=== PATIENT | female | born 1960 ===

== ENCOUNTER 2021-04-16 18:37 | Inpatient (IN) | payer OTHER, SELFPAY ==
[2021-04-16 18:45] VITALS: BP 159/76; PULSE 76; RESP 15; TEMP 36.2; O2SAT 98
--- NOTE | 2021-04-16 20:49 | PC.ADMIT ---
Patient is admitted from [facility] at 18:45pm on 04/16/21. Patient is assessed by [facility] and diagnosed with F33.1 Major Depressive Disorder, Recurrent Episode, Moderate. Patient is A&OX4 though states, Monday when asked what day of the week it was. Patient presents with flat, depressed affect and significant thought blocking/communication delay with fidgeting gross motor activity. Patient rates current anxiety 5/10. When asked if she is feeling depressed, she replies no, no, no. Patient denies auditory/visual hallucinations and suicidal ideation, though appears pre-occupied. Patient reports she is a current 1 pack/day smoker for the last 40 years. When asked how she is feeling at this time, patient replies I just want to get it right, so I can go home. I need to go back to work. 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 Per [facility] documentation, patient presented to [facility]'s inpatient medical floor secondary to alcohol withdrawal, dehydration, and not caring for herself. Per [facility] records, Pt. endorsed SI with non-disclosed plan within the context of depressive symptoms. Pt. reports not sleeping, eating or drinking in recent weeks. Initially, when asked if she uses/used alcohol, patient responded firmly No. Patient then reported she had a couple of drinks before coming into the hospital, but it was just a blip. I am still sober. [facility] Medical Records indicate possible Wernicke's Encephalopathy. Patient is known to [facility] and [facility] through a previous inpatient admission in 2018. Patient is oriented to unit and placed on inital 5 minute safety checks.
--- NOTE | 2021-04-16 21:57 | P.HPPS_ITS ---
HPI Date of Service: 04/16/21 Chief Complaint: SI, Depression Sources of Information: patient interviewed, chart reviewed and crisis/core team assessment reviewed HPI Subjective Notes: Hernandez Warning and Conditional Voluntary Narrative: Pt is a 61 y.o. Female who carries a dx of Alcohol Use Disorder and HINA. She was brought to [facility] 04/16/21 by her son due to altered mental status secondary to alcohol withdrawal, dehydration, and not caring for herself. Pt was seen by [facility] crisis due to endorsing SI and recurrent depressive symptoms. Pt recently relapsed on alcohol after being sober for 7 years. Per [facility] records, there is a question of Wernicke?s Encephalopathy, pt reports she had an MRI and it was ?normal,? will need to request records. Pt?s CIWA was 11 in AM and PRN ativan 1 mg was given with positive effect but further CIWA scores required no intervention. Brought in by son due to altered mental status.? I evaluated the pt this evening and upon interview she reports she is in the hospital ?to make sure im safe going back home.? She denies SI. Pt also denies depression, saying ?I get a little more anxious than depressed? and that ?im not depressed, I have a good life.? She is unable to identify precipitating fx for her relapse on alcohol, ?usually i really dont have the craving for that, i dont even know why i did it.? Says her relapse was a ?blip? and continues to repeat this throughout the interview. During her relapse, pt admits she was not eating, sleeping, or caring for herself. Says since then, her sleep is ?most of the time okay.? Reports her daytime energy is ?not as good as it used to be.? Appetite is now restored. Pt says that during this most recent binge, she had a ?problem with the brain a little bit, [the alcohol] soaked in a little bit.? Says ?I know i?m much better now and it?s a huge reminder not to do it again ever because next time it will kill me.? Says she has anxiety about ?little things during the day,? but denies that anxiety impairs her functioning, ?I just work through it.? Denies panic attacks. Says she is ?sometimes just anxious because the brain doesnt always turn off, its always going.? However, denies hyposomnia and says she jessica with anxiety by walking, doing deep breathing. She denies issues with concentration or memory. Denies family hx of dementia, alzheimers. No hx of manic or hypomanic episodes endorsed. Denies aggression. Denies psychotic sx. Denies sx of PTSD.? Past Psychiatric History: Past meds: Pt states ?I think there was one for depression at one time,? but says this was ?a very long time,? doesnt remember the medication, didnt like the way it made her feel. -No current OP treatment, remote hx of therapy -Hx of IPLOC at [facility] in 2018 due to SI with plan to OD on diuretics, depression, and psychotic sx. Medical Evaluation Reviewed: Hospitalist Aishwarya Pending [facility] Medical History (Updated 04/17/21 @ 09:23 by Malathi Echols NP) Hypertension Narrative: -COPD, expressive aphasia (unclear etiology, question of Wernicke?s Encephalopathy). -Per [facility] records on 04/16/21, CBC wnl except RBC L 3.41, Hbg/ Hct L 11.5/35.0. CMP wnl. Utox negative. Mg wnl, vit B12 wnl.? -Pt reports she had a fall ?about a month ago,? and that she ?tripped? in context of alcohol intoxication, did not lose consciousness, no medical follow up. Says she has had some headaches, but otherwise denies residual effects.? Family History: -Per chart, pt?s mother was heavily medicated all of the time and committed suicide by overdosing on pills. Social History: -Pt born in [place], raised by bio parents (now , mom completed suicide by OD on pills). She has five children and six grandchildren. Says she has supports at work, in a relationship, close with her children. -Pt works at [employer] (had worked there 15 years and recently started back work there). 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 Substance History: -Alcohol: onset in her 20s, relapsed in March, was drinking 3-4 mini bottles of wine (187 ml) ?a couple times a day,? has pattern of binge drinking, had been abstinent 7 yrs. Hx of AA, says she has a sponsor. Trauma History: Denies Diagnostics Vital Signs (24Hr): Vital Signs - 24 hr 04/16/21 18:45 Temperature 97.2 F Pulse Rate 76 Respiratory Rate 15 Blood Pressure 159/76 H Pulse Oximetry 98 Meds/Allergies Meds Home Medications Acetaminophen (Acetaminophen 325 Mg Tablet) 650 mg PO Q6H PRN PRN Reason: Headache/Pain Mild Scale (1-3) Last Admin: 04/17/21 07:13 Dose: 650 mg Documented by: Al Hydroxide/Mg Hydroxide (Magnesium Hydrox/Alum Hydrox 30 Ml Oral.Susp) 30 ml PO Q6H PRN PRN Reason: Heartburn/Nausea Clonidine HCl (Clonidine Hcl 0.1 Mg Tablet) 0.1 mg PO DAILY PRN; Protocol PRN Reason: anxiety Fluticasone/Vilanterol (Fluticasone/Vilanterol 100/25 Blst.W.Dev) 1 puff INHALE RDAILY [facility] Last Admin: 04/17/21 08:33 Dose: 1 puff Documented by: Hydroxyzine HCl (Hydroxyzine Hcl 25 Mg Tablet) 25 mg PO Q6H PRN PRN Reason: Anxiety Last Admin: 04/17/21 07:13 Dose: 25 mg Documented by: Lisinopril (Lisinopril 40 Mg Tablet) 40 mg PO DAILY [facility]; Protocol Last Admin: 04/17/21 08:33 Dose: 40 mg Documented by: Magnesium Hydroxide (Milk Of Magnesia 30 Ml Oral.Susp) 30 ml PO DAILY PRN PRN Reason: Constipation Omeprazole (Omeprazole 40 Mg Capsule.Dr) 40 mg PO DAILY@0630 [facility] Last Admin: 04/17/21 06:44 Dose: 40 mg Documented by: Pravastatin Sodium (Pravastatin Sodium 20 Mg Tablet) 20 mg PO DAILY [facility] Last Admin: 04/17/21 08:34 Dose: 20 mg Documented by: Trazodone HCl (Trazodone Hcl 50 Mg Tablet) 50 mg PO BEDTIME PRN PRN Reason: Insomnia Allergies Allergies Allergy/AdvReac Type Severity Reaction Status Date / Time No Known Allergies Allergy Unverified 04/16/21 18:35 Mental Status Exam Mental Status Exam Narrative: A&O. In hospital attire, arms crossed, thin, dyed hair. Poor eye contact, attentive. Pt appears somewhat unbalanced, unsteady on feet but able to ambulate without assist and has not had falls. No abnormal involuntary movements. Pt is suspicious, constricted, difficult to engage, minimizing sx. She appears to have some cognitive impairment with unclear etiology (alcohol?), expressive aphasia. Non-pressured speech, non-spontaneous, notable for prolonged speech latency. Mood is ?anxious,? affect is constricted/ blunted. Denies SI/SIB/HI upon inquiry. Denies A/VH or delusional thought content. Thoughts are perseverative, continues to repeat relapse was a blip. Insight/ Judgment limited. Assessment & Plan Assessment & Plan (1) Alcohol use disorder, severe, dependence: Status: Acute Code(s): F10.20 - Alcohol dependence, uncomplicated (2) HINA (generalized anxiety disorder): Status: Acute Code(s): F41.1 - Generalized anxiety disorder Assessment and Plan: Pt is a 61 y.o. Female who carries a dx of Alcohol Use Disorder and HINA. She was brought to [facility] 04/16/21 by her son due to altered mental status secondary to alcohol withdrawal, dehydration, and not caring for herself. She is currently presenting with sx of prolonged speech latency, expressive aphasia, and unsteady gait. She endorses sx of anxiety but denies other psych sx. Remote hx of IPLOC in 2018. No current OP treatment. Pt is ambivalent about medication. Discussed medication treatment for anxiety and reviewed risks/ benefits of clonidine. Pt says she is ?not opposed to it? but that ?everybody is anxious and they don?t always take medication.? Says she has anxiety ?every once in a while? but denies that it impairs her functioning. Says she is ?trying to get back to myself? and is unsure if medication will help. Will start clonidine 0.1 mg QD PRN for anxiety. Monitor response to medications. Monitor for safety in the milieu. Discharge on stabilization. Patient seen. Chart reviewed. Discussed with team. Obtain collateral contact info?as needed Reason for continued inpatient stay Substantial Risk for: inability to function and med/psych decompensation
[2021-04-17] MEDS: Omeprazole 40 MG CAPSULE.DR PO (06:44)
[2021-04-17 07:08] LABS: Alanine Aminotransferase 21 U/L (0-31); Albumin Level 4.2 g/dL (3.5-5.0); Alkaline Phosphatase 49 U/L (39-117); Aspartate Amino Transferase 24 U/L (5-31); Bilirubin Direct < 0.2 mg/dL (0.0-0.5); Bilirubin Total 0.2 mg/dL (0.0-1.0); Total Protein 6.4 g/dL (6.5-8.0)
[2021-04-17] MEDS: hydrOXYzine HCL 25 MG TABLET PO (07:13)
[2021-04-17] MEDS: Acetaminophen 325 MG TABLET 650 MG PO (07:13)
[2021-04-17 07:30] LABS: Free T4 (Free Thyroxine) 1.19 ng/dL (0.71-1.85); Thyroid Stimulating Hormone 1.53 uIU/mL (0.32-4.0)
--- NOTE | 2021-04-17 07:46 | P.CONHOSP_ITS ---
History of Present Illness Data of Consult Service Date: 04/17/21 Primary Care Provider: Unknown Physician HPI Reason for consult: Routine consult 61 year old women with hx of HTN, admitted to for psychiatric care. She was transferred from [facility]. Her vital signs are stable. She has no acute medical complaints Review of Systems Verdana 4l Review of Systems: Verdana 4d Verdana 4d Denies any recent fever chills or decrease in appetite respiratory denies any shortness of breath coverage production cardiovascular denies chest pain gastrointestinal denies any dysphagia abdominal pain nausea vomiting or diarrhea genitourinarygenitourinary denies any dysuria frequency or hematuria musculoskeletal denies any joint pain or swelling neuropsych denies any weakness or seizures all other systems reviewed are negative [facility] Medical History (Updated 04/17/21 @ 09:23 by Malathi Ehcols NP) Hypertension Social History Household Members: None Housing: House Do you presently have visiting nurse or other home services: No Patient Tobacco Use Status: Current everyday Tobacco user Tobacco use type: Cigarette Cigarette Packs Per Day: 1 Cigarettes Per Day: 20.0 Years Smoked: 40 Patient Interested in Nicotine Replacement: Yes Patient Given Instructions on How to Stop Smoking: Yes Date Education Initiated: 04/16/21 Second Hand Smoke Exposure: Yes Use of substances other than those prescribed or required for medical reasons: No Currently Displaying Signs/Symptoms of Drug Intoxication Withdrawal: No Have you been hit, kicked, punched, or otherwise hurt by someone within the past year? If so, by whom?: No Do you feel safe in your current relationship?: Yes Is there a partner from a previous relationship who is making you feel unsafe now?: No Are you made to feel afraid or neglected: No Advance Directives: No Advance Directives Information Provided: Yes Advance Directives on File: No Do you have thoughts of harming others: None Do you have a plan to hurt others: No Plan Recently lost weight without trying: Yes How much weight loss: 2-13 pounds Eating poorly because of decreased appetite: Yes Nutrition screen score: 4 Nutrition Risks: Anorexia Patient : No : No Poor oral hygiene: No Meds Allergies Allergy/AdvReac Type Severity Reaction Status Date / Time No Known Allergies Allergy Unverified 04/16/21 18:35 Active Medications: Current Medications Acetaminophen (Acetaminophen 325 Mg Tablet) 650 mg PO Q6H PRN PRN Reason: Headache/Pain Mild Scale (1-3) Last Admin: 04/17/21 07:13 Dose: 650 mg Documented by: Al Hydroxide/Mg Hydroxide (Magnesium Hydrox/Alum Hydrox 30 Ml Oral.Susp) 30 ml PO Q6H PRN PRN Reason: Heartburn/Nausea Clonidine HCl (Clonidine Hcl 0.1 Mg Tablet) 0.1 mg PO DAILY PRN; Protocol PRN Reason: anxiety Fluticasone/Vilanterol (Fluticasone/Vilanterol 100/25 Blst.W.Dev) 1 puff INHALE RDAILY [facility] Hydroxyzine HCl (Hydroxyzine Hcl 25 Mg Tablet) 25 mg PO Q6H PRN PRN Reason: Anxiety Last Admin: 04/17/21 07:13 Dose: 25 mg Documented by: Lisinopril (Lisinopril 40 Mg Tablet) 40 mg PO DAILY [facility]; Protocol Magnesium Hydroxide (Milk Of Magnesia 30 Ml Oral.Susp) 30 ml PO DAILY PRN PRN Reason: Constipation Omeprazole (Omeprazole 40 Mg Capsule.Dr) 40 mg PO DAILY@0630 [facility] Last Admin: 04/17/21 06:44 Dose: 40 mg Documented by: Pravastatin Sodium (Pravastatin Sodium 20 Mg Tablet) 20 mg PO DAILY [facility] Trazodone HCl (Trazodone Hcl 50 Mg Tablet) 50 mg PO BEDTIME PRN PRN Reason: Insomnia Physical Exam Verdana 4l Vital Signs and Narrative: Verdana 4d Verdana 4d Vital Signs: Verdana 4d Verdana 4Bd Last Vital Signs Verdana 4d Pulvi Mixer Operator New 4d Pulvi Mixer Operator New 4d Temp 97.2 F 04/16/21 18:45 Pulvi Mixer Operator New 4d Pulse 76 04/16/21 18:45 Pulvi Mixer Operator NewNew 4d Resp 15 04/16/21 18:45 BP 159/76 H 04/16/21 18:45 Pulse Ox 98 04/16/21 18:45 Appearing in no acute distress lung sounds are clear to auscultation heart regular rate rhythm, clear S1, S2 positive bowel sounds, abdomen is soft, nontender neuro patient is alert x3, no focal deficits CRANIAL NERVES 2-12 GROSSLY INTACT WITHOUT FOCAL DEFICITS Results Labs Labs: Laboratory Results - last 24 hr 04/17/21 06:31 Total Bilirubin 0.2 Direct Bilirubin < 0.2 AST 24 ALT 21 Alkaline Phosphatase 49 Total Protein 6.4 L Albumin 4.2 TSH 1.53 Free T4 1.19 Assessment and Plan (1) Hypertension: Status: Inactive 61 year old women admitted to for psychiatric care Hypertension stable BP continue lisinopril Mental health management as per admitting team
[2021-04-17 08:30] VITALS: BP 136/68; PULSE 79; RESP 18; TEMP 36.6; O2SAT 98
[2021-04-17 08:33] VITALS: BP 136/68; PULSE 79
[2021-04-17] MEDS: Fluticasone/Vilanterol 100/25 BLST.W.DEV 1 PUFF INHALE (08:33)
[2021-04-17] MEDS: lisinopriL 40 MG TABLET PO (08:33)
[2021-04-17] MEDS: Pravastatin Sodium 20 MG TABLET PO (08:34)
--- NOTE | 2021-04-17 13:06 | HO.PSYCHPN ---
Subjective Subjective Date of Service: 04/17/21 Reason For Visit: SI, Depression Subjective Notes: Conditional Voluntary Interim History: Pt guarded, suspicious. Pt reports she does not remember what happened at [facility]. Pt reports she knows she is on psych unit, for evaluation. Pt denies SI/HI. At times telling this consumer loan underwriter she does not need to meet, prolonged period of silence, thought blocking confused as to what program is this. Later out of [facility] tells this consumer loan underwriter, I want to be in this program. per son, pt was reporting that she thought son was on penalty, some paranoia, confusion. son reports similar episode back in 2017, she recovered but had no recollection of events. 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 Medication Compliance: Yes Review of Systems Review of Systems Denies any recent fever chills or decrease in appetite respiratory denies any shortness of breath coverage production cardiovascular denies chest pain gastrointestinal denies any dysphagia abdominal pain nausea vomiting or diarrhea genitourinary denies any dysuria frequency or hematuria musculoskeletal denies any joint pain or swelling neuropsych denies any weakness or seizures all other systems reviewed are negative Mental Status Exam Mental Status Exam Narrative: A&O. In hospital attire, arms crossed, thin, dyed hair. Poor eye contact, attentive. Pt appears somewhat unbalanced, unsteady on feet but able to ambulate without assist and has not had falls. No abnormal involuntary movements. Pt is suspicious, constricted, difficult to engage, minimizing sx. She appears to have some cognitive impairment with unclear etiology (alcohol?), expressive aphasia. Non-pressured speech, non-spontaneous, notable for prolonged speech latency. Mood is ?anxious,? affect is constricted/ blunted. Denies SI/SIB/HI upon inquiry. Denies A/VH or delusional thought content. Thoughts are perseverative, continues to repeat relapse was a blip. Insight/ Judgment limited. Diagnostics Vital Signs (24Hr): Vital Signs - 24 hr 04/18/21 07:45 04/18/21 08:07 04/18/21 21:06 Temperature 97.6 F 97.4 F Pulse Rate 80 80 77 Respiratory Rate 18 16 Blood Pressure 131/62 131/62 131/64 Pulse Oximetry 98 98 Labs Labs: Laboratory Results - last 48 hr 04/17/21 06:31 Total Bilirubin 0.2 Direct Bilirubin < 0.2 AST 24 ALT 21 Alkaline Phosphatase 49 Total Protein 6.4 L Albumin 4.2 TSH 1.53 Free T4 1.19 Medications Medications Current Medications Acetaminophen (Acetaminophen 325 Mg Tablet) 650 mg PO Q6H PRN PRN Reason: Headache/Pain Mild Scale (1-3) Last Admin: 04/17/21 07:13 Dose: 650 mg Documented by: Al Hydroxide/Mg Hydroxide (Magnesium Hydrox/Alum Hydrox 30 Ml Oral.Susp) 30 ml PO Q6H PRN PRN Reason: Heartburn/Nausea Last Admin: 04/17/21 21:46 Dose: 30 ml Documented by: Clonidine HCl (Clonidine Hcl 0.1 Mg Tablet) 0.1 mg PO DAILY PRN; Protocol PRN Reason: anxiety Fluticasone/Vilanterol (Fluticasone/Vilanterol 100/25 Blst.W.Dev) 1 puff INHALE RDAILY [facility] Last Admin: 04/18/21 09:36 Dose: 1 puff Documented by: Hydroxyzine HCl (Hydroxyzine Hcl 25 Mg Tablet) 25 mg PO Q6H PRN PRN Reason: Anxiety Last Admin: 04/17/21 07:13 Dose: 25 mg Documented by: Lisinopril (Lisinopril 40 Mg Tablet) 40 mg PO DAILY [facility]; Protocol Last Admin: 04/18/21 08:07 Dose: 40 mg Documented by: Magnesium Hydroxide (Milk Of Magnesia 30 Ml Oral.Susp) 30 ml PO DAILY PRN PRN Reason: Constipation Omeprazole (Omeprazole 40 Mg Capsule.Dr) 40 mg PO DAILY@0630 [facility] Last Admin: 04/18/21 06:50 Dose: 40 mg Documented by: Pravastatin Sodium (Pravastatin Sodium 20 Mg Tablet) 20 mg PO DAILY [facility] Last Admin: 04/18/21 08:07 Dose: 20 mg Documented by: Risperidone (Risperidone 0.5 Mg Tablet) 0.5 mg PO BID [facility] Last Admin: 04/18/21 20:47 Dose: 0.5 mg Documented by: Thiamine HCl (Thiamine Hcl 100 Mg Tablet) 100 mg PO DAILY [facility] Last Admin: 04/18/21 08:07 Dose: 100 mg Documented by: Trazodone HCl (Trazodone Hcl 50 Mg Tablet) 50 mg PO BEDTIME PRN PRN Reason: Insomnia Allergies Allergies Allergy/AdvReac Type Severity Reaction Status Date / Time No Known Allergies Allergy Unverified 04/16/21 18:35 Assessment & Plan Assessment & Plan (1) Hypertension: Status: Inactive Code(s): I10 - Essential (primary) hypertension (2) Alcohol use disorder, severe, dependence: Status: Acute Code(s): F10.20 - Alcohol dependence, uncomplicated (3) Psychosis: Status: Acute Code(s): F29 - Unspecified psychosis not due to a substance or known physiological condition Assessment and Plan: PLAN 1. start low dose risperidone 0.5mg po BID 2. coordination of care 3. obtain collateral information I spent minutes with the patient and/or on the patient floor today, greater than?50% of which was spent counseling/coordinating care. Reason for contiued inpatient stay Substantial Risk for: inability to function
[2021-04-17] MEDS: Thiamine HCL 100 MG TABLET PO (15:15)
[2021-04-17 20:10] VITALS: PULSE 88; RESP 18; TEMP 36.6; O2SAT 96
[2021-04-17] MEDS: Magnesium Hydrox/Alum Hydrox 30 ML ORAL.SUSP PO (21:46)
[2021-04-17] MEDS: risperiDONE 0.5 MG TABLET PO (21:47)
[2021-04-18] MEDS: Omeprazole 40 MG CAPSULE.DR PO (06:50)
[2021-04-18 07:45] VITALS: BP 131/62; PULSE 80; RESP 18; TEMP 36.4; O2SAT 98
[2021-04-18 08:07] VITALS: BP 131/62; PULSE 80
[2021-04-18] MEDS: Thiamine HCL 100 MG TABLET PO (08:07)
[2021-04-18] MEDS: lisinopriL 40 MG TABLET PO (08:07)
[2021-04-18] MEDS: Pravastatin Sodium 20 MG TABLET PO (08:07)
[2021-04-18] MEDS: risperiDONE 0.5 MG TABLET PO ×2 (08:07→20:47)
[2021-04-18] MEDS: Fluticasone/Vilanterol 100/25 BLST.W.DEV 1 PUFF INHALE (09:36)
--- NOTE | 2021-04-18 12:11 | HO.PSYCHPN ---
Subjective Subjective Date of Service: 04/18/21 Reason For Visit: SI, Depression Subjective Notes: Conditional Voluntary and 3 Day Interim History: Pt less guarded. Pt reports she relapsed on alcohol, it was a slip Pt reports not having any cravings. She reports she was depressed but not any more and that she feels much better in terms of her mood. She is oriented to place, situation, month, date, year. Pt able to complete draw clock test with only difficulty placing hands but able to do it accurately. She denies SI/HI. less thought blocking Medication Compliance: Yes Review of Systems Review of Systems Denies any recent fever chills or decrease in appetite respiratory denies any shortness of breath coverage production cardiovascular denies chest pain gastrointestinal denies any dysphagia abdominal pain nausea vomiting or diarrhea genitourinary denies any dysuria frequency or hematuria musculoskeletal denies any joint pain or swelling neuropsych denies any weakness or seizures all other systems reviewed are negative Mental Status Exam Mental Status Exam Narrative: A&O. In hospital attire, arms crossed, thin, dyed hair. Poor eye contact, attentive. Pt appears somewhat unbalanced, unsteady on feet but able to ambulate without assist and has not had falls. No abnormal involuntary movements. Pt is suspicious, constricted, difficult to engage, minimizing sx. She appears to have some cognitive impairment with unclear etiology (alcohol?), expressive aphasia. Non-pressured speech, non-spontaneous, notable for prolonged speech latency. Mood is ?anxious,? affect is constricted/ blunted. Denies SI/SIB/HI upon inquiry. Denies A/VH or delusional thought content. Thoughts are perseverative, continues to repeat relapse was a blip. Insight/ Judgment limited. Diagnostics Vital Signs (24Hr): Vital Signs - 24 hr 04/18/21 07:45 04/18/21 08:07 04/18/21 21:06 Temperature 97.6 F 97.4 F Pulse Rate 80 80 77 Respiratory Rate 18 16 Blood Pressure 131/62 131/62 131/64 Pulse Oximetry 98 98 Labs Labs: Laboratory Results - last 48 hr 04/17/21 06:31 Total Bilirubin 0.2 Direct Bilirubin < 0.2 AST 24 ALT 21 Alkaline Phosphatase 49 Total Protein 6.4 L Albumin 4.2 TSH 1.53 Free T4 1.19 Medications Medications Current Medications Acetaminophen (Acetaminophen 325 Mg Tablet) 650 mg PO Q6H PRN PRN Reason: Headache/Pain Mild Scale (1-3) Last Admin: 04/17/21 07:13 Dose: 650 mg Documented by: Al Hydroxide/Mg Hydroxide (Magnesium Hydrox/Alum Hydrox 30 Ml Oral.Susp) 30 ml PO Q6H PRN PRN Reason: Heartburn/Nausea Last Admin: 04/17/21 21:46 Dose: 30 ml Documented by: Clonidine HCl (Clonidine Hcl 0.1 Mg Tablet) 0.1 mg PO DAILY PRN; Protocol PRN Reason: anxiety Fluticasone/Vilanterol (Fluticasone/Vilanterol 100/25 Blst.W.Dev) 1 puff INHALE RDAILY [facility] Last Admin: 04/18/21 09:36 Dose: 1 puff Documented by: Hydroxyzine HCl (Hydroxyzine Hcl 25 Mg Tablet) 25 mg PO Q6H PRN PRN Reason: Anxiety Last Admin: 04/17/21 07:13 Dose: 25 mg Documented by: Lisinopril (Lisinopril 40 Mg Tablet) 40 mg PO DAILY [facility]; Protocol Last Admin: 04/18/21 08:07 Dose: 40 mg Documented by: Magnesium Hydroxide (Milk Of Magnesia 30 Ml Oral.Susp) 30 ml PO DAILY PRN PRN Reason: Constipation Omeprazole (Omeprazole 40 Mg Capsule.Dr) 40 mg PO DAILY@0630 [facility] Last Admin: 04/18/21 06:50 Dose: 40 mg Documented by: Pravastatin Sodium (Pravastatin Sodium 20 Mg Tablet) 20 mg PO DAILY [facility] Last Admin: 04/18/21 08:07 Dose: 20 mg Documented by: Risperidone (Risperidone 0.5 Mg Tablet) 0.5 mg PO BID [facility] Last Admin: 04/18/21 20:47 Dose: 0.5 mg Documented by: Thiamine HCl (Thiamine Hcl 100 Mg Tablet) 100 mg PO DAILY [facility] Last Admin: 04/18/21 08:07 Dose: 100 mg Documented by: Trazodone HCl (Trazodone Hcl 50 Mg Tablet) 50 mg PO BEDTIME PRN PRN Reason: Insomnia Allergies Allergies Allergy/AdvReac Type Severity Reaction Status Date / Time No Known Allergies Allergy Unverified 04/16/21 18:35 Assessment & Plan Assessment & Plan (1) Hypertension: Status: Inactive Code(s): I10 - Essential (primary) hypertension (2) Alcohol use disorder, severe, dependence: Status: Acute Code(s): F10.20 - Alcohol dependence, uncomplicated (3) Psychosis: Status: Acute Code(s): F29 - Unspecified psychosis not due to a substance or known physiological condition Assessment and Plan: PLAN 1. start low dose risperidone 0.5mg po BID- son reports similar incident back in 2017 wernickle's encephalopathy that resolved and mentation/cognition/memory improved. son denies cognitive decline prior to past week before presenting to ED. less thought blocking, less suspiciousness. 2. coordination of care 3. obtain collateral information I spent minutes with the patient and/or on the patient floor today, greater than?50% of which was spent counseling/coordinating care. Reason for contiued inpatient stay Substantial Risk for: inability to function
[2021-04-18 21:06] VITALS: BP 131/64; PULSE 77; RESP 16; TEMP 36.3; O2SAT 98
[2021-04-19] MEDS: Omeprazole 40 MG CAPSULE.DR PO (05:48)
[2021-04-19 08:17] VITALS: BP 135/70; PULSE 86; RESP 17; TEMP 36.6; O2SAT 99
[2021-04-19 08:26] VITALS: BP 135/70; PULSE 86
[2021-04-19] MEDS: lisinopriL 40 MG TABLET PO (08:26)
[2021-04-19] MEDS: Fluticasone/Vilanterol 100/25 BLST.W.DEV 1 PUFF INHALE (08:26)
[2021-04-19] MEDS: Thiamine HCL 100 MG TABLET PO (08:26)
[2021-04-19] MEDS: Pravastatin Sodium 20 MG TABLET PO (08:27)
[2021-04-19] MEDS: Acetaminophen 325 MG TABLET 650 MG PO (08:27)
[2021-04-19] MEDS: risperiDONE 0.5 MG TABLET PO ×2 (08:27→21:29)
[2021-04-19 08:37] LABS: Folate 17.1 ng/mL (> or = 4.0)
--- NOTE | 2021-04-19 15:14 | HO.PSYCHPN ---
Subjective Subjective Date of Service: 04/19/21 Reason For Visit: SI, Depression Interim History: pt presents as superficially well-related but ultimately vague and lacking in content, with delayed responses. 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 she states her mood is well and denies SI/HI/AVH. she is requesting discharge; she has a 3-day in which matures 04/21. MD informs her we would like to continue to observe her and make a determination 04/21. per staff, pt out watching TV, pleasant, med-compliant. no SI/HI. + dep/anx. thought-blocking. feels ready to discharge. Mental Status Exam Mental Status Exam Narrative: A&O. In street clothes, thin, dyed hair. good eye contact, attentive. No abnormal involuntary movements. Pt is suspicious, constricted, difficult to engage, minimizing sx. She appears to have some cognitive impairment with unclear etiology (alcohol?), expressive aphasia. Non-pressured speech, spontaneous, notable for prolonged speech latency. Mood is ?well,? affect is constricted/ blunted. Denies SI/SIB/HI upon inquiry. Denies A/VH or delusional thought content. Insight/ Judgment limited. Diagnostics Vital Signs (24Hr): Vital Signs - 24 hr 04/18/21 21:06 04/19/21 08:17 04/19/21 08:26 Temperature 97.4 F 97.8 F Pulse Rate 77 86 86 Respiratory Rate 16 17 Blood Pressure 131/64 135/70 135/70 Pulse Oximetry 98 99 Labs Labs: Laboratory Results - last 48 hr 04/17/21 06:31 Folate 17.1 Medications Medications Current Medications Acetaminophen (Acetaminophen 325 Mg Tablet) 650 mg PO Q6H PRN PRN Reason: Headache/Pain Mild Scale (1-3) Last Admin: 04/19/21 08:27 Dose: 650 mg Documented by: Al Hydroxide/Mg Hydroxide (Magnesium Hydrox/Alum Hydrox 30 Ml Oral.Susp) 30 ml PO Q6H PRN PRN Reason: Heartburn/Nausea Last Admin: 04/17/21 21:46 Dose: 30 ml Documented by: Clonidine HCl (Clonidine Hcl 0.1 Mg Tablet) 0.1 mg PO DAILY PRN; Protocol PRN Reason: anxiety Fluticasone/Vilanterol (Fluticasone/Vilanterol 100/25 Blst.W.Dev) 1 puff INHALE RDAILY [facility] Last Admin: 04/19/21 08:26 Dose: 1 puff Documented by: Hydroxyzine HCl (Hydroxyzine Hcl 25 Mg Tablet) 25 mg PO Q6H PRN PRN Reason: Anxiety Last Admin: 04/17/21 07:13 Dose: 25 mg Documented by: Lisinopril (Lisinopril 40 Mg Tablet) 40 mg PO DAILY [facility]; Protocol Last Admin: 04/19/21 08:26 Dose: 40 mg Documented by: Magnesium Hydroxide (Milk Of Magnesia 30 Ml Oral.Susp) 30 ml PO DAILY PRN PRN Reason: Constipation Omeprazole (Omeprazole 40 Mg Capsule.Dr) 40 mg PO DAILY@0630 [facility] Last Admin: 04/19/21 05:48 Dose: 40 mg Documented by: Pravastatin Sodium (Pravastatin Sodium 20 Mg Tablet) 20 mg PO DAILY [facility] Last Admin: 04/19/21 08:27 Dose: 20 mg Documented by: Risperidone (Risperidone 0.5 Mg Tablet) 0.5 mg PO BID [facility] Last Admin: 04/19/21 08:27 Dose: 0.5 mg Documented by: Thiamine HCl (Thiamine Hcl 100 Mg Tablet) 100 mg PO DAILY [facility] Last Admin: 04/19/21 08:26 Dose: 100 mg Documented by: Trazodone HCl (Trazodone Hcl 50 Mg Tablet) 50 mg PO BEDTIME PRN PRN Reason: Insomnia Allergies Allergies Allergy/AdvReac Type Severity Reaction Status Date / Time No Known Allergies Allergy Unverified 04/16/21 18:35 Assessment & Plan Assessment & Plan (1) Hypertension: Status: Inactive Code(s): I10 - Essential (primary) hypertension (2) Alcohol use disorder, severe, dependence: Status: Acute Code(s): F10.20 - Alcohol dependence, uncomplicated (3) Psychosis: Status: Acute Code(s): F29 - Unspecified psychosis not due to a substance or known physiological condition Assessment and Plan: PLAN 1. started low dose risperidone 0.5mg po BID- son reports similar incident back in 2017 wernickle's encephalopathy that resolved and mentation/cognition/memory improved. son denies cognitive decline prior to past week before presenting to ED. less thought blocking, less suspiciousness. 2. coordination of care 3. obtain collateral information I spent minutes with the patient and/or on the patient floor today, greater than?50% of which was spent counseling/coordinating care. Reason for contiued inpatient stay Substantial Risk for: inability to function and rapid decompensation
[2021-04-19 16:21] VITALS: BMI 17.3
[2021-04-19 16:48] VITALS: BMI 17.3
[2021-04-19 20:16] VITALS: BP 136/64; PULSE 85; RESP 15; TEMP 36.2; O2SAT 94
[2021-04-19] MEDS: Magnesium Hydrox/Alum Hydrox 30 ML ORAL.SUSP PO (21:29)
[2021-04-20] MEDS: Omeprazole 40 MG CAPSULE.DR PO (05:13)
[2021-04-20 08:10] VITALS: BP 133/92; PULSE 76; RESP 18; TEMP 36.6; O2SAT 100
[2021-04-20 08:16] VITALS: BP 133/92; PULSE 76
[2021-04-20] MEDS: risperiDONE 0.5 MG TABLET PO ×2 (08:16→20:55)
[2021-04-20] MEDS: lisinopriL 40 MG TABLET PO (08:16)
[2021-04-20] MEDS: Pravastatin Sodium 20 MG TABLET PO (08:16)
[2021-04-20] MEDS: Thiamine HCL 100 MG TABLET PO (08:16)
[2021-04-20] MEDS: Fluticasone/Vilanterol 100/25 BLST.W.DEV 1 PUFF INHALE (08:18)
--- NOTE | 2021-04-20 20:57 | HO.PSYCHPN ---
Subjective Subjective Date of Service: 04/20/21 Reason For Visit: SI, Depression Interim History: pt reports her mood as great, denies any safety concerns. continues to appear to have paucity of thought with delayed responses. MD comments no the delay and pt is able to decrease her latency substantially for a number of exchanges. pt states she will have one of her children come pick her up. later in the morning she finds MD and informs MD that she is having her daughter come pick her up at 11 tomorrow. per staff, eating, sleeping, pleasant. anxious re going home. delayed responses. Mental Status Exam Mental Status Exam Narrative: A&O. In street clothes, thin, dyed hair. good eye contact, attentive. No abnormal involuntary movements. Pt is constricted, somewhat difficult to engage, minimizing sx. She appears to have some cognitive impairment with unclear etiology, expressive aphasia. Non-pressured speech, spontaneous, notable for prolonged speech latency. Mood is euthymic, affect is constricted/blunted. Denies SI/SIB/HI upon inquiry. Denies A/VH or delusional thought content. Insight/ Judgment limited. Diagnostics Vital Signs (24Hr): Vital Signs - 24 hr 04/20/21 08:10 04/20/21 08:16 Temperature 97.8 F Pulse Rate 76 76 Respiratory Rate 18 Blood Pressure 133/92 H 133/92 H Pulse Oximetry 100 BMI result Body Mass Index 17.3 Labs Labs: Laboratory Results - last 48 hr 04/17/21 06:31 Folate 17.1 Medications Medications Current Medications Acetaminophen (Acetaminophen 325 Mg Tablet) 650 mg PO Q6H PRN PRN Reason: Headache/Pain Mild Scale (1-3) Last Admin: 04/19/21 08:27 Dose: 650 mg Documented by: Al Hydroxide/Mg Hydroxide (Magnesium Hydrox/Alum Hydrox 30 Ml Oral.Susp) 30 ml PO Q6H PRN PRN Reason: Heartburn/Nausea Last Admin: 04/19/21 21:29 Dose: 30 ml Documented by: Clonidine HCl (Clonidine Hcl 0.1 Mg Tablet) 0.1 mg PO DAILY PRN; Protocol PRN Reason: anxiety Fluticasone/Vilanterol (Fluticasone/Vilanterol 100/25 Blst.W.Dev) 1 puff INHALE TAJ [facility] Last Admin: 04/20/21 08:18 Dose: 1 puff Documented by: Hydroxyzine HCl (Hydroxyzine Hcl 25 Mg Tablet) 25 mg PO Q6H PRN PRN Reason: Anxiety Last Admin: 04/17/21 07:13 Dose: 25 mg Documented by: Lisinopril (Lisinopril 40 Mg Tablet) 40 mg PO DAILY [facility]; Protocol Last Admin: 04/20/21 08:16 Dose: 40 mg Documented by: Magnesium Hydroxide (Milk Of Magnesia 30 Ml Oral.Susp) 30 ml PO DAILY PRN PRN Reason: Constipation Omeprazole (Omeprazole 40 Mg Capsule.Dr) 40 mg PO DAILY@0630 [facility] Last Admin: 04/20/21 05:13 Dose: 40 mg Documented by: Pravastatin Sodium (Pravastatin Sodium 20 Mg Tablet) 20 mg PO DAILY [facility] Last Admin: 04/20/21 08:16 Dose: 20 mg Documented by: Risperidone (Risperidone 0.5 Mg Tablet) 0.5 mg PO BID [facility] Last Admin: 04/20/21 08:16 Dose: 0.5 mg Documented by: Thiamine HCl (Thiamine Hcl 100 Mg Tablet) 100 mg PO DAILY [facility] Last Admin: 04/20/21 08:16 Dose: 100 mg Documented by: Trazodone HCl (Trazodone Hcl 50 Mg Tablet) 50 mg PO BEDTIME PRN PRN Reason: Insomnia Allergies Allergies Allergy/AdvReac Type Severity Reaction Status Date / Time No Known Allergies Allergy Unverified 04/16/21 18:35 Assessment & Plan Assessment & Plan (1) Hypertension: Status: Inactive Code(s): I10 - Essential (primary) hypertension (2) Alcohol use disorder, severe, dependence: Status: Acute Code(s): F10.20 - Alcohol dependence, uncomplicated (3) Psychosis: Status: Acute Code(s): F29 - Unspecified psychosis not due to a substance or known physiological condition Assessment and Plan: PLAN 1. started low dose risperidone 0.5mg po BID- son reports similar incident back in 2017 wernickle's encephalopathy that resolved and mentation/cognition/memory improved. son denies cognitive decline prior to past week before presenting to ED. less thought blocking, less suspiciousness. 2. coordination of care 3. obtain collateral information 4. discharge tomorrow, at maturation of 3-day notice. I spent minutes with the patient and/or on the patient floor today, greater than?50% of which was spent counseling/coordinating care. Reason for contiued inpatient stay Substantial Risk for: inability to function and rapid decompensation
[2021-04-21 08:30] VITALS: BP 128/87; PULSE 114; RESP 18; TEMP 36.6; O2SAT 98
[2021-04-21 11:30] VITALS: BP 128/87; PULSE 114
[2021-04-21] MEDS: lisinopriL 40 MG TABLET PO (11:30)
[2021-04-21] MEDS: risperiDONE 0.5 MG TABLET PO ×2 (11:31→20:14)
[2021-04-21] MEDS: Pravastatin Sodium 20 MG TABLET PO (11:31)
[2021-04-21] MEDS: hydrOXYzine HCL 25 MG TABLET PO (11:31)
[2021-04-21] MEDS: Omeprazole 40 MG CAPSULE.DR PO ×2 (11:31→11:35)
[2021-04-21] MEDS: Thiamine HCL 100 MG TABLET PO (11:34)
[2021-04-21] MEDS: LORazepam 1 MG TABLET PO (12:17)
--- NOTE | 2021-04-21 12:34 | MHC.CLN ---
F/U STAFF REPORTS THAT PATIENT IS EATING. CONTINUE TO FOLLOW INTAKE.
--- NOTE | 2021-04-21 16:34 | P.CNNE_ITS ---
History of Present Illness Data of Consult Service Date: 04/21/21 Primary Care Provider: Unknown Physician HPI Reason for consult: Encephalopathy 61 years old woman with history of alcohol abuse who was admitted on psychiatric floor with symptoms related to alcohol withdrawal depression and suicidal ideation. History was obtained from chart. She was somewhat hesitant to talk about her situation but did say that she was admitted 2nd time on the psychiatric floor with depression and she could not handle it. She was calm and cooperative. There was no complaint of any headache. Review of Systems Review of Systems: No headaches or trauma or seizure-like episode. [facility] Past Medical History Medical History (Updated 04/18/21 @ 23:10 by Yoly eB) Hypertension Social History Social History Household Members: None Housing: House Do you presently have visiting nurse or other home services: No Patient Tobacco Use Status: Current everyday Tobacco user Tobacco use type: Cigarette Cigarette Packs Per Day: 1 Cigarettes Per Day: 20.0 Years Smoked: 40 Patient Interested in Nicotine Replacement: Yes Patient Given Instructions on How to Stop Smoking: Yes Date Education Initiated: 04/16/21 Second Hand Smoke Exposure: Yes Use of substances other than those prescribed or required for medical reasons: No Currently Displaying Signs/Symptoms of Drug Intoxication Withdrawal: No Have you been hit, kicked, punched, or otherwise hurt by someone within the past year? If so, by whom?: No Do you feel safe in your current relationship?: Yes Is there a partner from a previous relationship who is making you feel unsafe now?: No Are you made to feel afraid or neglected: No Advance Directives: No Advance Directives Information Provided: Yes Advance Directives on File: No Do you have thoughts of harming others: None Do you have a plan to hurt others: No Plan Recently lost weight without trying: Yes How much weight loss: 2-13 pounds Eating poorly because of decreased appetite: Yes Nutrition screen score: 4 Nutrition Risks: Anorexia Patient : No : No Poor oral hygiene: No service: No Meds Allergies Allergy/AdvReac Type Severity Reaction Status Date / Time No Known Allergies Allergy Unverified 04/16/21 18:35 Active Medications: Current Medications Acetaminophen (Acetaminophen 325 Mg Tablet) 650 mg PO Q6H PRN PRN Reason: Headache/Pain Mild Scale (1-3) Last Admin: 04/19/21 08:27 Dose: 650 mg Documented by: Al Hydroxide/Mg Hydroxide (Magnesium Hydrox/Alum Hydrox 30 Ml Oral.Susp) 30 ml PO Q6H PRN PRN Reason: Heartburn/Nausea Last Admin: 04/19/21 21:29 Dose: 30 ml Documented by: Clonazepam (Clonazepam 0.5 Mg Tablet) 0.5 mg PO BID [facility] Clonidine HCl (Clonidine Hcl 0.1 Mg Tablet) 0.1 mg PO DAILY PRN; Protocol PRN Reason: anxiety Fluticasone/Vilanterol (Fluticasone/Vilanterol 100/25 Blst.W.Dev) 1 puff INHALE RDAILY [facility] Last Admin: 04/21/21 09:43 Dose: Not Given Documented by: Hydroxyzine HCl (Hydroxyzine Hcl 25 Mg Tablet) 25 mg PO Q6H PRN PRN Reason: Anxiety Last Admin: 04/21/21 11:31 Dose: 25 mg Documented by: Lisinopril (Lisinopril 40 Mg Tablet) 40 mg PO DAILY [facility]; Protocol Last Admin: 04/21/21 11:30 Dose: 40 mg Documented by: Magnesium Hydroxide (Milk Of Magnesia 30 Ml Oral.Susp) 30 ml PO DAILY PRN PRN Reason: Constipation Nicotine (Nicotine 21 Mg Patch.Td24) 21 mg TRANSDERMA DAILY [facility] Last Admin: 04/21/21 10:40 Dose: Not Given Documented by: Omeprazole (Omeprazole 40 Mg Capsule.Dr) 40 mg PO DAILY@0630 [facility] Last Admin: 04/21/21 11:35 Dose: 40 mg Documented by: Pravastatin Sodium (Pravastatin Sodium 20 Mg Tablet) 20 mg PO DAILY [facility] Last Admin: 04/21/21 11:31 Dose: 20 mg Documented by: Risperidone (Risperidone 0.5 Mg Tablet) 0.5 mg PO BID [facility] Last Admin: 04/21/21 11:31 Dose: 0.5 mg Documented by: Thiamine HCl (Thiamine Hcl 100 Mg Tablet) 100 mg PO DAILY [facility] Last Admin: 04/21/21 11:34 Dose: 100 mg Documented by: Trazodone HCl (Trazodone Hcl 50 Mg Tablet) 50 mg PO BEDTIME PRN PRN Reason: Insomnia Physical Exam Vital Signs: Vital Signs: Last Vital Signs Temp 97.9 F 04/21/21 08:30 Pulse 114 H 04/21/21 11:30 Resp 18 04/21/21 08:30 BP 128/87 04/21/21 11:30 Pulse Ox 98 04/21/21 08:30 BMI result Body Mass Index 17.3 Neuro: Other: She was alert and awake with normal spontaneity of speech fluency comprehension and affect. She was somewhat vague about her answers. She was following commands. Pupils were equal and reactive to light. Face was symmetrical. Minimal tremor was noted in hands. [id number] testing was normal. Deep tendon reflexes were absent. She was able to get up and walk around without difficulty. Speech was normal. Assessment and Plan (1) Alcohol use disorder, severe, dependence: Status: Acute Her primary problem seems to be alcoholism. Chronic alcoholism can result in significant changes in brain more specifically degenerative changes resulting in atrophy. In my experience, most of the time these changes and not even reported on radiology reports. It might be useful to obtain CD of her previous imaging to review it. If that was not possible, and noncontrast head CT or noncontrast MRI can help. Chronic alcoholism and related changes may result in personality change, mood disorder, depression and anxiety. There are no clinical signs at this time to suggest any damage to her brainstem. Procedures Date of Service Date of Service: 04/21/21
--- NOTE | 2021-04-21 16:50 | P.PNPSI_ITS ---
Subjective Subjective Date of Service: 04/21/21 Reason For Visit: SI, Depression Interim History: pt presented as perseverative with mild choreo-athetotic movements this morning, odd asymmetric gait. was restless with continued movements as above during interview. informed pt that the hospital would file for involuntary hospitalization today if she did not rescind her 3-day notice. pt became more tremulous and labile. remains very vague, difficult to parse whether she has thought disorder versus expressive aphasia. pt later rescinded her 3-day notice, but only after hospital had filed for commitment. per swimming pool maintenance supervisor, pt was much less restless and more calm after ativan 1 mg PRN. per staff, 3-day matures today. thought-blocked, anx/dep, withdrawn. difficulty sleeping last night 2/2 anxiety. denies SI/HI. reported feeling safe on the unit. Mental Status Exam Mental Status Exam Narrative: A&O. In street clothes, thin, dyed hair. good eye contact, attentive. restless and choreo-athetotic mvmts, unstable asymmetric gait. Pt is constricted, somewhat difficult to engage, being vague and evasive. She appears to have some cognitive impairment with unclear etiology, expressive aphasia. Non-pressured speech, spontaneous, notable for prolonged speech latency. Mood is euthymic, affect is constricted/blunted. Denies SI/SIB/HI upon inquiry. Denies A/VH or delusional thought content. Insight/ Judgment limited. Diagnostics Vital Signs (24Hr): Vital Signs - 24 hr 04/21/21 08:30 04/21/21 11:30 Temperature 97.9 F Pulse Rate 114 H 114 H Respiratory Rate 18 Blood Pressure 128/87 128/87 Pulse Oximetry 98 BMI result Body Mass Index 17.3 Medications Medications Current Medications Acetaminophen (Acetaminophen 325 Mg Tablet) 650 mg PO Q6H PRN PRN Reason: Headache/Pain Mild Scale (1-3) Last Admin: 04/19/21 08:27 Dose: 650 mg Documented by: Al Hydroxide/Mg Hydroxide (Magnesium Hydrox/Alum Hydrox 30 Ml Oral.Susp) 30 ml PO Q6H PRN PRN Reason: Heartburn/Nausea Last Admin: 04/19/21 21:29 Dose: 30 ml Documented by: Clonazepam (Clonazepam 0.5 Mg Tablet) 0.5 mg PO BID YEE Clonidine HCl (Clonidine Hcl 0.1 Mg Tablet) 0.1 mg PO DAILY PRN; Protocol PRN Reason: anxiety Fluticasone/Vilanterol (Fluticasone/Vilanterol 100/25 Blst.W.Dev) 1 puff INHALE RDAILY [facility] Last Admin: 04/21/21 09:43 Dose: Not Given Documented by: Hydroxyzine HCl (Hydroxyzine Hcl 25 Mg Tablet) 25 mg PO Q6H PRN PRN Reason: Anxiety Last Admin: 04/21/21 11:31 Dose: 25 mg Documented by: Lisinopril (Lisinopril 40 Mg Tablet) 40 mg PO DAILY [facility]; Protocol Last Admin: 04/21/21 11:30 Dose: 40 mg Documented by: Magnesium Hydroxide (Milk Of Magnesia 30 Ml Oral.Susp) 30 ml PO DAILY PRN PRN Reason: Constipation Nicotine (Nicotine 21 Mg Patch.Td24) 21 mg TRANSDERMA DAILY [facility] Last Admin: 04/21/21 10:40 Dose: Not Given Documented by: Omeprazole (Omeprazole 40 Mg Capsule.Dr) 40 mg PO DAILY@0630 [facility] Last Admin: 04/21/21 11:35 Dose: 40 mg Documented by: Pravastatin Sodium (Pravastatin Sodium 20 Mg Tablet) 20 mg PO DAILY [facility] Last Admin: 04/21/21 11:31 Dose: 20 mg Documented by: Risperidone (Risperidone 0.5 Mg Tablet) 0.5 mg PO BID [facility] Last Admin: 04/21/21 11:31 Dose: 0.5 mg Documented by: Thiamine HCl (Thiamine Hcl 100 Mg Tablet) 100 mg PO DAILY [facility] Last Admin: 04/21/21 11:34 Dose: 100 mg Documented by: Trazodone HCl (Trazodone Hcl 50 Mg Tablet) 50 mg PO BEDTIME PRN PRN Reason: Insomnia Allergies Allergies Allergy/AdvReac Type Severity Reaction Status Date / Time No Known Allergies Allergy Unverified 04/16/21 18:35 Assessment & Plan Assessment & Plan (1) Alcohol use disorder, severe, dependence: Status: Acute Code(s): F10.20 - Alcohol dependence, uncomplicated Assessment and Plan: 1. started low dose risperidone 0.5mg po BID- son reports similar incident back in 2017 wernickle's encephalopathy that resolved and mentation/cognition/memory improved. son denies cognitive decline prior to past week before presenting to ED. less thought blocking, less suspiciousness. 2. coordination of care 3. obtain collateral information - neuro consult emphasizes alcohol Hx and recommends neuro-imaging, perhaps. JOSEPH to be done by OT tomorrow. 4. dispo - filed for commitment 04/21 for grave disability. I spent minutes with the patient and/or on the patient floor today, greater than?50% of which was spent counseling/coordinating care. Reason for contiued inpatient stay Substantial Risk for: inability to function and rapid decompensation
[2021-04-21] MEDS: clonazePAM 0.5 MG TABLET PO (20:14)
[2021-04-21 20:29] VITALS: BP 108/58; PULSE 89; TEMP 36.6; O2SAT 98
[2021-04-22 07:00] VITALS: BMI 19.1
[2021-04-22 08:10] VITALS: BP 115/55; PULSE 73; TEMP 36
[2021-04-22 08:36] VITALS: BP 115/55; PULSE 73
[2021-04-22] MEDS: Pravastatin Sodium 20 MG TABLET PO (08:36)
[2021-04-22] MEDS: lisinopriL 40 MG TABLET PO (08:36)
[2021-04-22] MEDS: Omeprazole 40 MG CAPSULE.DR PO (08:36)
[2021-04-22] MEDS: clonazePAM 0.5 MG TABLET PO ×2 (08:36→20:59)
[2021-04-22] MEDS: Thiamine HCL 100 MG TABLET PO (08:36)
[2021-04-22] MEDS: risperiDONE 0.5 MG TABLET PO (08:37)
[2021-04-22] MEDS: Nicotine 21 MG PATCH.TD24 TRANSDERMA (08:37)
--- NOTE | 2021-04-22 15:54 | HO.PSYCHPN ---
Subjective Subjective Date of Service: 04/22/21 Reason For Visit: SI, Depression Interim History: pt appears somewhat hypermotoric, asymmetric gait, intertested in meeting with MD. asking about discharge today, repeatedly, and repeatedly told we will wait until monday as per our discussion yesterday. pt seems to have a very hard time grasping and holding onto that information. she approaches MD again later in the day in the [facility] proposing a particular child of hers pick her up monday; MD informs her it is her choice who picks her up. per staff, appears anxious. reluctantly compliant with meds. perseverative r.e. discharge. thought-blocking. self-blaming r.e. not taking meds yesterday. Mental Status Exam Mental Status Exam Narrative: A&O. In street clothes, thin, dyed hair. good eye contact, attentive. restless and choreo-athetotic mvmts, unstable asymmetric gait. Pt is constricted, somewhat difficult to engage, being vague and evasive. She appears to have some cognitive impairment with unclear etiology, expressive aphasia. Non-pressured speech, spontaneous, notable for prolonged speech latency. Mood is euthymic, affect is constricted/blunted. no SI/HI/AVH expressed. Diagnostics Vital Signs (24Hr): Vital Signs - 24 hr 04/21/21 20:29 04/22/21 08:10 04/22/21 08:36 Temperature 97.9 F 96.8 F Pulse Rate 89 73 73 Blood Pressure 108/58 L 115/55 L 115/55 L Pulse Oximetry 98 BMI result Body Mass Index 17.3 Medications Medications Current Medications Acetaminophen (Acetaminophen 325 Mg Tablet) 650 mg PO Q6H PRN PRN Reason: Headache/Pain Mild Scale (1-3) Last Admin: 04/19/21 08:27 Dose: 650 mg Documented by: Al Hydroxide/Mg Hydroxide (Magnesium Hydrox/Alum Hydrox 30 Ml Oral.Susp) 30 ml PO Q6H PRN PRN Reason: Heartburn/Nausea Last Admin: 04/19/21 21:29 Dose: 30 ml Documented by: Clonazepam (Clonazepam 0.5 Mg Tablet) 0.5 mg PO BID YEE Last Admin: 04/22/21 08:36 Dose: 0.5 mg Documented by: Clonidine HCl (Clonidine Hcl 0.1 Mg Tablet) 0.1 mg PO DAILY PRN; Protocol PRN Reason: anxiety Fluticasone/Vilanterol (Fluticasone/Vilanterol 100/25 Blst.W.Dev) 1 puff INHALE RDAILY [facility] Last Admin: 04/22/21 08:42 Dose: Not Given Documented by: Hydroxyzine HCl (Hydroxyzine Hcl 25 Mg Tablet) 25 mg PO Q6H PRN PRN Reason: Anxiety Last Admin: 04/21/21 11:31 Dose: 25 mg Documented by: Lisinopril (Lisinopril 40 Mg Tablet) 40 mg PO DAILY [facility]; Protocol Last Admin: 04/22/21 08:36 Dose: 40 mg Documented by: Magnesium Hydroxide (Milk Of Magnesia 30 Ml Oral.Susp) 30 ml PO DAILY PRN PRN Reason: Constipation Nicotine (Nicotine 21 Mg Patch.Td24) 21 mg TRANSDERMA DAILY [facility] Last Admin: 04/22/21 08:37 Dose: 21 mg Documented by: Omeprazole (Omeprazole 40 Mg Capsule.Dr) 40 mg PO DAILY@0630 [facility] Last Admin: 04/22/21 08:36 Dose: 40 mg Documented by: Pravastatin Sodium (Pravastatin Sodium 20 Mg Tablet) 20 mg PO DAILY [facility] Last Admin: 04/22/21 08:36 Dose: 20 mg Documented by: Risperidone (Risperidone 0.5 Mg Tablet) 0.5 mg PO DAILY [facility] Risperidone (Risperidone 1 Mg Tablet) 1 mg PO BEDTIME YEE Risperidone (Risperidone 0.5 Mg Tablet) 0.5 mg PO DAILY PRN PRN Reason: agitation Thiamine HCl (Thiamine Hcl 100 Mg Tablet) 100 mg PO DAILY [facility] Last Admin: 04/22/21 08:36 Dose: 100 mg Documented by: Trazodone HCl (Trazodone Hcl 50 Mg Tablet) 50 mg PO BEDTIME PRN PRN Reason: Insomnia Allergies Allergies Allergy/AdvReac Type Severity Reaction Status Date / Time No Known Allergies Allergy Unverified 04/16/21 18:35 Assessment & Plan Assessment & Plan (1) Alcohol use disorder, severe, dependence: Status: Acute Code(s): F10.20 - Alcohol dependence, uncomplicated Assessment and Plan: 1. started low dose risperidone 0.5mg po BID- son reports similar incident back in 2017 wernickle's encephalopathy that resolved and mentation/cognition/memory improved. son denies cognitive decline prior to past week before presenting to ED. less thought blocking, less suspiciousness. risperidone dosing increased to 1 mg QHS and 0.5 mg in the morning. 2. coordination of care 3. obtain collateral information - neuro consult emphasizes alcohol Hx and recommends neuro-imaging, perhaps. JOSEPH to be done by OT. 4. dispo - filed for commitment 04/21 for grave disability. pt retracted 3-day notice after. currently planning for 04/26 discharge. I spent minutes with the patient and/or on the patient floor today, greater than?50% of which was spent counseling/coordinating care. Reason for contiued inpatient stay Substantial Risk for: inability to function and rapid decompensation
[2021-04-22 20:00] VITALS: BP 115/67; PULSE 81; RESP 14; TEMP 35.6; O2SAT 99
[2021-04-22] MEDS: risperiDONE 1 MG TABLET PO (20:59)
[2021-04-23 08:18] VITALS: BP 130/67; PULSE 96; RESP 18; TEMP 36.2; O2SAT 98
[2021-04-23] MEDS: clonazePAM 0.5 MG TABLET PO ×2 (08:20→21:01)
[2021-04-23] MEDS: Thiamine HCL 100 MG TABLET PO (08:20)
[2021-04-23] MEDS: Nicotine 21 MG PATCH.TD24 TRANSDERMA (08:20)
[2021-04-23 08:21] VITALS: BP 130/67; PULSE 96
[2021-04-23] MEDS: Omeprazole 40 MG CAPSULE.DR PO (08:21)
[2021-04-23] MEDS: Pravastatin Sodium 20 MG TABLET PO (08:21)
[2021-04-23] MEDS: lisinopriL 40 MG TABLET PO (08:21)
[2021-04-23] MEDS: risperiDONE 0.5 MG TABLET PO (08:21)
--- NOTE | 2021-04-23 13:31 | MHC.CLN ---
F/U VISITED PATIENT AT LUNCH. APPEARED TO BE EATING WELL. OFFERED ENSURE TWICE DAILY AND PATIENT AGREES. ADDING ENSURE BID TO PROVIDE 700 KCAL, 26 G PROTEIN.
--- NOTE | 2021-04-23 13:58 | P.PNPSI_ITS ---
Subjective Subjective Date of Service: 04/23/21 Reason For Visit: SI, Depression Interim History: pt presents as per usual. in milieu, eager to meet with MD. asks if she can be discharged today. MD asks her what the discussion was on that yesterday and she responds that the plan was to discharge her on monday. MD reiterates that plan. MD informs her she will be picked up by son Candace on monday; she seems to express preference for another son but accepts that candace will be picking her up. reports her mood is OK anbd denies SI/SIBI. per staff, less depressed. delayed responses continue. plan to discharge at 11 am monday. Mental Status Exam Mental Status Exam Narrative: A&O. In street clothes, thin, dyed hair. good eye contact, attentive. restless and choreo-athetotic mvmts much decreased from the past couple of days, unstable asymmetric gait less so. Pt is constricted, somewhat difficult to engage, being vague and evasive. She appears to have some cognitive impairment with unclear etiology, expressive aphasia. Non-pressured speech, spontaneous, notable for prolonged speech latency. Mood is OK, affect is constricted/blunted. no SI/SIBI. no HI/AVH expressed. Diagnostics Vital Signs (24Hr): Vital Signs - 24 hr 04/22/21 20:00 04/23/21 08:18 04/23/21 08:21 Temperature 96.1 F L 97.2 F Pulse Rate 81 96 96 Respiratory Rate 14 18 Blood Pressure 115/67 130/67 130/67 Pulse Oximetry 99 98 BMI result Body Mass Index 19.1 Medications Medications Current Medications Acetaminophen (Acetaminophen 325 Mg Tablet) 650 mg PO Q6H PRN PRN Reason: Headache/Pain Mild Scale (1-3) Last Admin: 04/19/21 08:27 Dose: 650 mg Documented by: Al Hydroxide/Mg Hydroxide (Magnesium Hydrox/Alum Hydrox 30 Ml Oral.Susp) 30 ml PO Q6H PRN PRN Reason: Heartburn/Nausea Last Admin: 04/19/21 21:29 Dose: 30 ml Documented by: Clonazepam (Clonazepam 0.5 Mg Tablet) 0.5 mg PO BID YEE Last Admin: 04/23/21 08:20 Dose: 0.5 mg Documented by: Clonidine HCl (Clonidine Hcl 0.1 Mg Tablet) 0.1 mg PO DAILY PRN; Protocol PRN Reason: anxiety Fluticasone/Vilanterol (Fluticasone/Vilanterol 100/25 Blst.W.Dev) 1 puff INHALE RDAILY [facility] Last Admin: 04/23/21 08:24 Dose: Not Given Documented by: Hydroxyzine HCl (Hydroxyzine Hcl 25 Mg Tablet) 25 mg PO Q6H PRN PRN Reason: Anxiety Last Admin: 04/21/21 11:31 Dose: 25 mg Documented by: Lisinopril (Lisinopril 40 Mg Tablet) 40 mg PO DAILY [facility]; Protocol Last Admin: 04/23/21 08:21 Dose: 40 mg Documented by: Magnesium Hydroxide (Milk Of Magnesia 30 Ml Oral.Susp) 30 ml PO DAILY PRN PRN Reason: Constipation Nicotine (Nicotine 21 Mg Patch.Td24) 21 mg TRANSDERMA DAILY [facility] Last Admin: 04/23/21 08:20 Dose: 21 mg Documented by: Omeprazole (Omeprazole 40 Mg Capsule.Dr) 40 mg PO DAILY@0630 [facility] Last Admin: 04/23/21 08:21 Dose: 40 mg Documented by: Pravastatin Sodium (Pravastatin Sodium 20 Mg Tablet) 20 mg PO DAILY [facility] Last Admin: 04/23/21 08:21 Dose: 20 mg Documented by: Risperidone (Risperidone 0.5 Mg Tablet) 0.5 mg PO DAILY [facility] Last Admin: 04/23/21 08:21 Dose: 0.5 mg Documented by: Risperidone (Risperidone 1 Mg Tablet) 1 mg PO BEDTIME [facility] Last Admin: 04/22/21 20:59 Dose: 1 mg Documented by: Risperidone (Risperidone 0.5 Mg Tablet) 0.5 mg PO DAILY PRN PRN Reason: agitation Thiamine HCl (Thiamine Hcl 100 Mg Tablet) 100 mg PO DAILY [facility] Last Admin: 04/23/21 08:20 Dose: 100 mg Documented by: Trazodone HCl (Trazodone Hcl 50 Mg Tablet) 50 mg PO BEDTIME PRN PRN Reason: Insomnia Allergies Allergies Allergy/AdvReac Type Severity Reaction Status Date / Time No Known Allergies Allergy Unverified 04/16/21 18:35 Assessment & Plan Assessment & Plan (1) Alcohol use disorder, severe, dependence: Status: Acute Code(s): F10.20 - Alcohol dependence, uncomplicated Assessment and Plan: 1. started low dose risperidone 0.5mg po BID- son reports similar incident back in 2017 wernickle's encephalopathy that resolved and mentation/cognition/memory improved. son denies cognitive decline prior to past week before presenting to ED. less thought blocking, less suspiciousness. risperidone dosing increased to 1 mg QHS and 0.5 mg in the morning. klonopin 0.5 mg BID started after pt's movement Sx improved with ativan PRN. 2. coordination of care 3. obtain collateral information - neuro consult emphasizes alcohol Hx and recommends neuro-imaging, perhaps. JOSEPH to be done by OT. [facility] head CT shows sign of cerebral atrophy, nothing else very illuminating. 4. dispo - filed for commitment 04/21 for grave disability. pt retracted 3-day notice after. currently planning for 04/26 discharge. I spent minutes with the patient and/or on the patient floor today, greater than?50% of which was spent counseling/coordinating care. Reason for contiued inpatient stay Substantial Risk for: inability to function and rapid decompensation
[2021-04-23 20:22] VITALS: BP 102/56; PULSE 87; RESP 16; TEMP 36.5; O2SAT 98
[2021-04-23] MEDS: risperiDONE 1 MG TABLET PO (21:01)
[2021-04-24] MEDS: Pravastatin Sodium 20 MG TABLET PO (09:20)
[2021-04-24] MEDS: Omeprazole 40 MG CAPSULE.DR PO (09:20)
[2021-04-24] MEDS: Thiamine HCL 100 MG TABLET PO (09:20)
[2021-04-24] MEDS: clonazePAM 0.5 MG TABLET PO ×2 (09:20→22:26)
[2021-04-24 09:21] VITALS: BP 109/54; PULSE 85
[2021-04-24] MEDS: risperiDONE 0.5 MG TABLET PO (09:21)
[2021-04-24] MEDS: lisinopriL 40 MG TABLET PO (09:21)
[2021-04-24] MEDS: Fluticasone/Vilanterol 100/25 BLST.W.DEV 1 PUFF INHALE (09:23)
[2021-04-24] MEDS: Nicotine 21 MG PATCH.TD24 TRANSDERMA (09:25)
[2021-04-24 10:00] VITALS: PULSE 85; RESP 16; TEMP 36.3; O2SAT 94
--- NOTE | 2021-04-24 11:19 | HO.PSYCHPN ---
Subjective Subjective Date of Service: 04/24/21 Reason For Visit: SI, Depression Interim History: The nursing staff reported that the patient has been compliant with treatment, she has thought blocking and delayed responses. Today, on interview, she denied side effects and she stated been well Mental Status Exam Mental Status Exam Patient Appearance: Appropriate Patient Orientation: Person Level of Consciousness: Awake Patient Behavior: Guarded and Passive Mood Description: Withdrawn Affect Description: Constricted Patient Cognition Impaired: No Ability to Follow Directions: Good Speech Pattern: Clear Hallucinations: None Delusions: Not Present Thought Process: Distracted and Slowed Thinking Thought Content: positive for Circumstantial and positive for Poverty of Content Judgement: Fair Diagnostics Vital Signs (24Hr): Vital Signs - 24 hr 04/23/21 20:22 04/24/21 09:21 Temperature 97.7 F Pulse Rate 87 85 Respiratory Rate 16 Blood Pressure 102/56 L 109/54 L Pulse Oximetry 98 BMI result Body Mass Index 19.1 Medications Medications Current Medications Acetaminophen (Acetaminophen 325 Mg Tablet) 650 mg PO Q6H PRN PRN Reason: Headache/Pain Mild Scale (1-3) Last Admin: 04/19/21 08:27 Dose: 650 mg Documented by: Al Hydroxide/Mg Hydroxide (Magnesium Hydrox/Alum Hydrox 30 Ml Oral.Susp) 30 ml PO Q6H PRN PRN Reason: Heartburn/Nausea Last Admin: 04/19/21 21:29 Dose: 30 ml Documented by: Clonazepam (Clonazepam 0.5 Mg Tablet) 0.5 mg PO BID [facility]S [facility] 234 BEDS AT [facility] Last Admin: 04/24/21 09:20 Dose: 0.5 mg Documented by: Clonidine HCl (Clonidine Hcl 0.1 Mg Tablet) 0.1 mg PO DAILY PRN; Protocol PRN Reason: anxiety Fluticasone/Vilanterol (Fluticasone/Vilanterol 100/25 Blst.W.Dev) 1 puff INHALE RDAILY [facility] 234 BEDS AT [facility] Last Admin: 04/24/21 09:23 Dose: 1 puff Documented by: Hydroxyzine HCl (Hydroxyzine Hcl 25 Mg Tablet) 25 mg PO Q6H PRN PRN Reason: Anxiety Last Admin: 04/21/21 11:31 Dose: 25 mg Documented by: Lisinopril (Lisinopril 40 Mg Tablet) 40 mg PO DAILY [facility] 234 BEDS AT [facility]; Protocol Last Admin: 04/24/21 09:21 Dose: 40 mg Documented by: Magnesium Hydroxide (Milk Of Magnesia 30 Ml Oral.Susp) 30 ml PO DAILY PRN PRN Reason: Constipation Nicotine (Nicotine 21 Mg Patch.Td24) 21 mg TRANSDERMA DAILY [facility] 234 BEDS AT [facility] Last Admin: 04/24/21 09:25 Dose: 21 mg Documented by: Omeprazole (Omeprazole 40 Mg Capsule.) 40 mg PO DAILY@0630 [facility]CLUDE 234 BEDS AT THE [facility] Last Admin: 04/24/21 09:20 Dose: 40 mg Documented by: Pravastatin Sodium (Pravastatin Sodium 20 Mg Tablet) 20 mg PO DAILY [facility] 234 BEDS AT THE [facility] Last Admin: 04/24/21 09:20 Dose: 20 mg Documented by: Risperidone (Risperidone 0.5 Mg Tablet) 0.5 mg PO DAILY [facility]CLUDE 234 BEDS AT THE [facility] Last Admin: 04/24/21 09:21 Dose: 0.5 mg Documented by: Risperidone (Risperidone 1 Mg Tablet) 1 mg PO BEDTIME [facility]S [facility]CLUDE 234 BEDS AT THE [facility] Last Admin: 04/23/21 21:01 Dose: 1 mg Documented by: Risperidone (Risperidone 0.5 Mg Tablet) 0.5 mg PO DAILY PRN PRN Reason: agitation Thiamine HCl (Thiamine Hcl 100 Mg Tablet) 100 mg PO DAILY [facility]CLUDE 234 BEDS AT [facility] Last Admin: 04/24/21 09:20 Dose: 100 mg Documented by: Trazodone HCl (Trazodone Hcl 50 Mg Tablet) 50 mg PO BEDTIME PRN PRN Reason: Insomnia Allergies Allergies Allergy/AdvReac Type Severity Reaction Status Date / Time No Known Allergies Allergy Unverified 04/16/21 18:35 Assessment & Plan Assessment & Plan (1) Alcohol use disorder, severe, dependence: Status: Acute Code(s): F10.20 - Alcohol dependence, uncomplicated Assessment and Plan: 1. started low dose risperidone 0.5mg po BID- son reports similar incident back in 2017 wernickle's encephalopathy that resolved and mentation/cognition/memory improved. son denies cognitive decline prior to past week before presenting to ED. less thought blocking, less suspiciousness. risperidone dosing increased to 1 mg QHS and 0.5 mg in the morning. klonopin 0.5 mg BID started after pt's movement Sx improved with ativan PRN. 2. coordination of care 3. obtain collateral information - neuro consult emphasizes alcohol Hx and recommends neuro-imaging, perhaps. JOSEPH to be done by OT. [facility] head CT shows sign of cerebral atrophy, nothing else very illuminating. 4. dispo - filed for commitment 04/21 for grave disability. pt retracted 3-day notice after. currently planning for 04/26 discharge. I spent minutes with the patient and/or on the patient floor today, greater than?50% of which was spent counseling/coordinating care. Reason for contiued inpatient stay Substantial Risk for: inability to function, rapid decompensation and med/psych decompensation
[2021-04-24 20:12] VITALS: BP 114/52; PULSE 82; RESP 16; TEMP 36.7; O2SAT 99
[2021-04-24] MEDS: risperiDONE 1 MG TABLET PO (22:27)
[2021-04-25] MEDS: Omeprazole 40 MG CAPSULE.DR PO (06:44)
[2021-04-25] MEDS: Acetaminophen 325 MG TABLET 650 MG PO (08:50)
[2021-04-25 08:51] VITALS: BP 104/58; PULSE 81
[2021-04-25] MEDS: Pravastatin Sodium 20 MG TABLET PO (08:51)
[2021-04-25] MEDS: clonazePAM 0.5 MG TABLET PO ×2 (08:51→20:50)
[2021-04-25] MEDS: Thiamine HCL 100 MG TABLET PO (08:51)
[2021-04-25] MEDS: lisinopriL 40 MG TABLET PO (08:51)
[2021-04-25] MEDS: risperiDONE 0.5 MG TABLET PO (08:52)
[2021-04-25] MEDS: Nicotine 21 MG PATCH.TD24 TRANSDERMA (08:52)
[2021-04-25] MEDS: Fluticasone/Vilanterol 100/25 BLST.W.DEV 1 PUFF INHALE (08:56)
[2021-04-25 08:57] VITALS: BP 104/58; PULSE 81; RESP 16; TEMP 36.5; O2SAT 98
--- NOTE | 2021-04-25 10:48 | HO.PSYCHPN ---
Subjective Subjective Date of Service: 04/25/21 Reason For Visit: SI, Depression Interim History: The nursing staff reported that the patient was compliant with medication, she feels safe in the unit and she will probably feel safe at home. She is pleasant and denied anxiety or depression, only slight delay on responses, she slept well and she was focused on her discharge. On interview, she denied new symptoms, no side effects, content with the current regimen Mental Status Exam Mental Status Exam Patient Appearance: Appropriate Patient Orientation: Person Level of Consciousness: Awake Patient Behavior: Passive Mood Description: Withdrawn Affect Description: Constricted Ability to Follow Directions: Fair Speech Pattern: Clear Hallucinations: None Delusions: Not Present Thought Process: Linear and Slowed Thinking Thought Content: positive for Poverty of Content Judgement: Fair Diagnostics Vital Signs (24Hr): Vital Signs - 24 hr 04/24/21 20:12 04/25/21 08:51 04/25/21 08:57 Temperature 98.0 F 97.7 F Pulse Rate 82 81 81 Respiratory Rate 16 16 Blood Pressure 114/52 L 104/58 L 104/58 L Pulse Oximetry 99 98 BMI result Body Mass Index 19.1 Medications Medications Current Medications Acetaminophen (Acetaminophen 325 Mg Tablet) 650 mg PO Q6H PRN PRN Reason: Headache/Pain Mild Scale (1-3) Last Admin: 04/25/21 08:50 Dose: 650 mg Documented by: Al Hydroxide/Mg Hydroxide (Magnesium Hydrox/Alum Hydrox 30 Ml Oral.Susp) 30 ml PO Q6H PRN PRN Reason: Heartburn/Nausea Last Admin: 04/19/21 21:29 Dose: 30 ml Documented by: Clonazepam (Clonazepam 0.5 Mg Tablet) 0.5 mg PO BID [facility] Last Admin: 04/25/21 08:51 Dose: 0.5 mg Documented by: Clonidine HCl (Clonidine Hcl 0.1 Mg Tablet) 0.1 mg PO DAILY PRN; Protocol PRN Reason: anxiety Fluticasone/Vilanterol (Fluticasone/Vilanterol 100/25 Blst.W.Dev) 1 puff INHALE RDAILY [facility] Last Admin: 04/25/21 08:56 Dose: 1 puff Documented by: Hydroxyzine HCl (Hydroxyzine Hcl 25 Mg Tablet) 25 mg PO Q6H PRN PRN Reason: Anxiety Last Admin: 04/21/21 11:31 Dose: 25 mg Documented by: Lisinopril (Lisinopril 40 Mg Tablet) 40 mg PO DAILY [facility]; Protocol Last Admin: 04/25/21 08:51 Dose: 40 mg Documented by: Magnesium Hydroxide (Milk Of Magnesia 30 Ml Oral.Susp) 30 ml PO DAILY PRN PRN Reason: Constipation Nicotine (Nicotine 21 Mg Patch.Td24) 21 mg TRANSDERMA DAILY [facility] Last Admin: 04/25/21 08:52 Dose: 21 mg Documented by: Omeprazole (Omeprazole 40 Mg Capsule.Dr) 40 mg PO DAILY@0630 [facility] Last Admin: 04/25/21 06:44 Dose: 40 mg Documented by: Pravastatin Sodium (Pravastatin Sodium 20 Mg Tablet) 20 mg PO DAILY [facility] Last Admin: 04/25/21 08:51 Dose: 20 mg Documented by: Risperidone (Risperidone 0.5 Mg Tablet) 0.5 mg PO DAILY [facility] Last Admin: 04/25/21 08:52 Dose: 0.5 mg Documented by: Risperidone (Risperidone 1 Mg Tablet) 1 mg PO BEDTIME [facility] Last Admin: 04/24/21 22:27 Dose: 1 mg Documented by: Risperidone (Risperidone 0.5 Mg Tablet) 0.5 mg PO DAILY PRN PRN Reason: agitation Thiamine HCl (Thiamine Hcl 100 Mg Tablet) 100 mg PO DAILY [facility] Last Admin: 04/25/21 08:51 Dose: 100 mg Documented by: Trazodone HCl (Trazodone Hcl 50 Mg Tablet) 50 mg PO BEDTIME PRN PRN Reason: Insomnia Allergies Allergies Allergy/AdvReac Type Severity Reaction Status Date / Time No Known Allergies Allergy Unverified 04/16/21 18:35 Assessment & Plan Assessment & Plan (1) Alcohol use disorder, severe, dependence: Status: Acute Code(s): F10.20 - Alcohol dependence, uncomplicated Assessment and Plan: 1. started low dose risperidone 0.5mg po BID- son reports similar incident back in 2017 wernickle's encephalopathy that resolved and mentation/cognition/memory improved. son denies cognitive decline prior to past week before presenting to ED. less thought blocking, less suspiciousness. risperidone dosing increased to 1 mg QHS and 0.5 mg in the morning. klonopin 0.5 mg BID started after pt's movement Sx improved with ativan PRN. 2. coordination of care 3. obtain collateral information - neuro consult emphasizes alcohol Hx and recommends neuro-imaging, perhaps. JOSEPH to be done by OT. [facility] head CT shows sign of cerebral atrophy, nothing else very illuminating. 4. dispo - filed for commitment 04/21 for grave disability. pt retracted 3-day notice after. currently planning for 04/26 discharge. I spent minutes with the patient and/or on the patient floor today, greater than?50% of which was spent counseling/coordinating care. Reason for contiued inpatient stay Substantial Risk for: inability to function, rapid decompensation and med/psych decompensation
[2021-04-25] MEDS: risperiDONE 1 MG TABLET PO (20:50)
[2021-04-25 21:00] VITALS: BP 119/55; PULSE 78; RESP 16; TEMP 36.3; O2SAT 100
[2021-04-26] MEDS: Omeprazole 40 MG CAPSULE.DR PO (06:40)
[2021-04-26] MEDS: Thiamine HCL 100 MG TABLET PO (08:25)
[2021-04-26] MEDS: Fluticasone/Vilanterol 100/25 BLST.W.DEV 1 PUFF INHALE (08:25)
[2021-04-26 08:26] VITALS: BP 131/58; PULSE 80
[2021-04-26] MEDS: lisinopriL 40 MG TABLET PO (08:26)
[2021-04-26] MEDS: risperiDONE 0.5 MG TABLET PO (08:26)
[2021-04-26] MEDS: clonazePAM 0.5 MG TABLET PO (08:26)
[2021-04-26] MEDS: Pravastatin Sodium 20 MG TABLET PO (08:26)
[2021-04-26] MEDS: Nicotine 21 MG PATCH.TD24 TRANSDERMA (08:27)
[2021-04-26 08:32] VITALS: BP 131/58; PULSE 80; RESP 17; TEMP 36.4; O2SAT 99
--- NOTE | 2021-04-26 14:06 | P.DS_ITS ---
DS: Providers Provider Date of Service: 04/26/21 Date of admission: 04/16/21 18:37 Primary care physician: Unknown Physician Consults: 04/16/21 21:32 Consult to Hospitalist Routine Consulting Provider: Hospitalist Reason For Exam: [place] [facility] [place] 11:24 Consult to Physician Routine Consulting Provider: [facility] Reason for consultation: opinion on type of encephalopathy and prognosis/mgmt. Has provider been notified: No DS: Diagnosis Discharge Diagnosis (1) Alcohol use disorder, severe, dependence: Status: Acute DS: Medications Discharge Medications Home Medications: Previous Rx's Medication Instructions Recorded clonazepam 0.5 mg tablet 0.5 mg PO BID 30 Days #60 tab 04/26/21 fluticasone furoate 100 1 puff INHALATION RDAILY 30 Days 04/26/21 mcg-vilanterol 25 mcg/dose #1 ea inhalation powder (Breo Ellipta) lisinopril 40 mg tablet 40 mg PO DAILY 30 Days #30 tab 04/26/21 nicotine 21 mg/24 hr daily 21 mg TRANSDERMAL DAILY 28 Days 04/26/21 transdermal patch #28 ea omeprazole 40 mg capsule,delayed 40 mg PO DAILY@0630 30 Days #30 04/26/21 cap release pravastatin 20 mg tablet 20 mg PO DAILY 30 Days #30 tab 04/26/21 risperidone 0.5 mg tablet 0.5 mg PO DAILY 30 Days #30 tab 04/26/21 risperidone 1 mg tablet 1 mg PO BEDTIME 30 Days #30 tab 04/26/21 thiamine mononitrate (vit B1) 100 100 mg PO DAILY 30 Days #30 tab 04/26/21 mg tablet Mental Status Exam Mental Status Exam Narrative: A&O. In street clothes, thin, dyed hair. good eye contact, attentive. restless and choreo-athetotic mvmts much decreased from the past couple of days, unstable asymmetric gait less so. Pt is constricted, somewhat difficult to engage, being vague and evasive. She appears to have some cognitive impairment with unclear etiology, expressive aphasia. Non-pressured speech, spontaneous, notable for prolonged speech latency. Mood is euthymic, affect is constricted/blunted. no SI/SIBI/HI/AVH. DS: Summary Hospital Course Hospital Course: per 04/16 admission note: HPI Subjective Notes: Hernandez Warning and Conditional Voluntary Narrative: Pt is a 61 y.o. Female who carries a dx of Alcohol Use Disorder and HINA. She was [place] [facility] [place] by her son due to altered mental status secondary to alcohol withdrawal, dehydration, and not caring for herself. Pt was seen by [facility] crisis due to endorsing SI and recurrent depressive symptoms. Pt recently relapsed on alcohol after being sober for 7 years. [place] [facility], there is a question of Wernicke?s Encephalopathy, pt reports she had an MRI and it was ?normal,? will need to request records. Pt?s CIWA was 11 in AM and PRN ativan 1 mg was given with positive effect but further CIWA scores required no intervention. Brought in by son due to altered mental status.? I evaluated the pt this evening and upon interview she reports she is in the hospital ?to make sure im safe going back home.? She denies SI. Pt also denies depression, saying ?I get a little more anxious than depressed? and that ?im not depressed, I have a good life.? She is unable to identify precipitating fx for her relapse on alcohol, ?usually i really dont have the craving for that, i dont even know why i did it.? Says her relapse was a ?blip? and continues to repeat this throughout the interview. During her relapse, pt admits she was not eating, sleeping, or caring for herself. Says since then, her sleep is ?most of the time okay.? Reports her daytime energy is ?not as good as it used to be.? Appetite is now restored. Pt says that during this most recent binge, she had a ?problem with the brain a little bit, [the alcohol] soaked in a little bit.? Says ?I know i?m much better now and it?s a huge reminder not to do it again ever because next time it will kill me.? Says she has anxiety about ?little things during the day,? but denies that anxiety impairs her functioning, ?I just work through it.? Denies panic attacks. Says she is ?sometimes just anxious because the brain doesnt always turn off, its always going.? However, denies hyposomnia and says she jessica with anxiety by walking, doing deep breathing. She denies issues with concentration or memory. Denies family hx of dementia, alzheimers. No hx of manic or hypomanic episodes endorsed. Denies aggression. Denies psychotic sx. Denies sx of PTSD.? Past Psychiatric History: Past meds: Pt states ?I think there was one for depression at one time,? but says this was ?a very long time,? doesnt remember the medication, didnt like the way it made her feel.? -No current OP treatment, remote hx of therapy -Hx of IPLOC at [facility] [facility] [place] due to SI with plan to OD on diuretics, depression, and psychotic sx. Medical Evaluation Reviewed: Hospitalist Aishwarya Pending [facility] Medical History?(Updated 04/17/21 @ 09:23 by Malathi Echols NP) Hypertension Narrative: -COPD, expressive aphasia (unclear etiology, question of Wernicke?s Encephalopathy). -Per [facility], CBC wnl except RBC L 3.41, Hbg/ Hct L 11.5/35.0. CMP wnl. Utox negative. Mg wnl, vit B12 wnl.? -Pt reports she had a fall ?about a month ago,? and that she ?tripped? in context of alcohol intoxication, did not lose consciousness, no medical follow up. Says she has had some headaches, but otherwise denies residual effects.? Family History: -Per chart, pt?s mother was heavily medicated all of the time and committed suicide by overdosing on pills. Social History: -Pt born in [place], raised by bio parents (now , mom completed suicide by OD on pills). She has five children and six grandchildren. Says she has supports at work, in a relationship, close with her children. -Pt works at [employer] (had worked there 15 years and recently started back work there). Had been working as a [employer] in long term x 5 yrs, recently left this job. Substance History: -Alcohol: onset in her 20s, relapsed in March, was drinking 3-4 mini bottles of wine (187 ml) ?a couple times a day,? has pattern of binge drinking, had been abstinent 7 yrs. Hx of AA, says she has a sponsor. Trauma History: Denies Precis: 1. started low dose risperidone 0.5mg po BID- son reports similar incident back in 2017 wernickle's encephalopathy that resolved and mentation/cognition/memory improved. son denies cognitive decline prior to past week before presenting to ED. less thought blocking, less suspiciousness.? risperidone dosing increased to 1 mg QHS and 0.5 mg in the morning.? klonopin 0.5 mg BID started after pt's movement Sx improved with ativan PRN. 2. coordination of care 3. obtain collateral information - neuro consult emphasizes alcohol Hx and recommends neuro-imaging, perhaps.? JOSEPH to be done by OT.? [facility] head CT shows sign of cerebral atrophy, nothing else very illuminating. 4. dispo - filed for commitment 04/21 for grave disability.? pt retracted 3-day notice after.? 04/26 discharge. 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 Referrals: Teressa Mccarty (Therapy) [Other] - 04/27/21 9:00 am (In Office Appointment) Dennis Giron (Psychiatry) [Other] - 05/17/21 10:00 am (In Office Appointment - Psychiatric Evaluation ) Dennis Giron (Psychiatry) [Other] - 06/16/21 9:00 am (In Office Appointment - Medication Management ) [facility] [Physician] - 1 Week Discharge Medications: New clonazepam 0.5 mg Tablet 0.5 mg PO BID 30 Days Qty: 60 0RF omeprazole 40 mg Capsule,Delayed Release(Dr/Ec) 40 mg PO DAILY@0630 30 Days Qty: 30 0RF nicotine 21 mg/24 hr Patch 24 Hour 21 mg transdermal DAILY 28 Days Qty: 28 0RF pravastatin 20 mg Tablet 20 mg PO DAILY 30 Days Qty: 30 0RF lisinopril 40 mg Tablet 40 mg PO DAILY 30 Days Qty: 30 0RF Protocol: Hold for SBP< HOLD for SBP < : 90 risperidone 1 mg Tablet 1 mg PO BEDTIME 30 Days Qty: 30 0RF risperidone 0.5 mg Tablet 0.5 mg PO DAILY 30 Days Qty: 30 0RF thiamine mononitrate (vit B1) 100 mg Tablet 100 mg PO DAILY 30 Days Qty: 30 0RF Breo Ellipta 100-25 mcg/dose Blister With Device 1 puff inhalation RDAILY 30 Days Qty: 1 0RF Discharge Orders: Discharge Order (Routine); Ordered 04/26/21 Ordered By: Ric Mancia Diet: advance to usual diet Activity on Discharge: As tolerated Stand Alone Forms: Patient Portal Discharge page, Community Support Care Plan Goals: maintain independent and sober living inthe community Health Concerns: alcohol use disorder sequelae Plan of Treatment: continue to take medications as prescribed. attend appointments as scheduled. Assessment: not at imminent risk of harm to self or others. Discharge Date/Time: 04/26/21 14:58
== END 2021-04-26 14:58 | disposition home or self-care (01) | DRG 754 ==
PROVIDERS: Registered Nurse; Admitting Provider Psychiatry & Neurology Psychiatry; Visit Provider Social Worker
DX: F32.A Depression, unspecified (principal); R45.851 Suicidal ideations; F29 Unspecified psychosis not due to a substance or known physiological condition; F41.1 Generalized anxiety disorder; F10.20 Alcohol dependence, uncomplicated; I10 Essential (primary) hypertension; F17.210 Nicotine dependence, cigarettes, uncomplicated; Z71.6 Tobacco abuse counseling; Z95.1 Presence of aortocoronary bypass graft; Z79.899 Other long term (current) drug therapy
CPT/HCPCS: 36415; 80076; 82746; 84439; 84443